=== PATIENT | male | born 1945 | race Caucasian/White ===

== ENCOUNTER 2016-11-03 08:14 | Emergency (ER) | payer MEDICARE, BC ==
[2016-11-03 09:10] LABS: BLOOD UREA NITROGEN 9 mg/dL (9-20); CALCIUM 9.3 mg/dL (8.4-10.2); CHLORIDE 102 mmol/L (98-107); EST GLOMERULAR FILTRATION RATE > 60 mL/min; GLUCOSE 202 mg/dL (70-100); SODIUM 140 mmol/L (137-145)
[2016-11-03 09:13] LABS: BASOPHILS 0.9 % (0.0-2.0); EOSINOPHILS 4.7 % (0.0-6.0); HEMATOCRIT 37.5 % (42.0-54.0); HEMOGLOBIN 12.5 g/dL (14.0-18.0); LYMPHOCYTES 32.1 % (20.0-40.0); MEAN CORPUS. HGB CONCENTRATION 33.3 g/dL (32.0-36.0); MEAN CORPUSCULAR HEMOGLOBIN 29.8 pg (29.0-35.0); MEAN PLATELET VOLUME 6.8 fL (7.4-10.4); MONOCYTES 7.2 % (2.0-10.0); NEUTROPHILS 55.1 % (54.0-75.0); PLATELET COUNT 456 X 10^3uL (130-440); RED CELL DISTRIBUTION WIDTH 12.8 % (11.5-14.5); WHITE BLOOD COUNT 12.5 X 10^3uL (3.9-10.7)
[2016-11-03 09:14] LABS: BASOPHIL# 0.1 X 10^3uL (0.0-0.1); EOSINOPHILS# 0.6 X 10^3uL (0.0-0.4); MONOCYTES# 0.9 X 10^3uL (0.2-1.0); NEUTROPHILS# 6.9 X 10^3uL (2.6-6.7)
[2016-11-03] MEDS ORDERED: cefTRIAXone SODIUM 1,000 MG/10 ML VIAL ONE (09:16)
[2016-11-03] MEDS ORDERED: NORMAL SALINE 100 ML IV ONE (09:16)
[2016-11-03 09:50] LABS: URINE MUCUS NONE SEEN (Up to 25%); URINE RBC NONE SEEN (0-5/hpf); URINE SQUAMOUS EPITHELIAL CELL NONE SEEN (<= 15/hpf); URINE WBC NONE SEEN (0-4/hpf)
--- NOTE | 2016-11-03 09:56 | CT REPORT ---
HISTORY: Chest pain. TECHNIQUE: Contiguous axial images were acquired from the thoracic inlet to the upper abdomen following the admi nistration of IV contrast. Coronal reformatted images were also performed. This examination was performed using automated exposure control, adjustment of mA or kV according to patient size, and/or use of iterative reconstruction technique. FINDINGS: Comparison: Comparison is made with chest radiograph of same date. Braided Rug Maker localizer: Braided Rug Maker localizer shows right upper lobe pulmonary opacity. Lungs show an irregular, spiculated noncalcified right upper lobe pulmonary mass, best demonstrated o n series 3 image 22. It measures 6.5 cm transverse x 7.3 cm AP x 6.0 cm craniocaudad. It shows centra l areas of decreased attenuation, consistent with necrosis. It also contains coarse irregular calcifi cations. The lesion extends to the pleura within the apex of the right hemithorax and also abuts the superior mediastinum, extending inferiorly to the right hilum. The lesion measures 1.5 cm from the ca nando. There is mild associated postobstructive atelectasis. Results were communicated to the referring care provider concerning these findings at the time of dic tation. There is no pleural effusion or pneumothorax. Small round partially calcified pulmonary nodules are a lso seen bilaterally, most consistent with granulomatous change. Mediastinum shows an enlarged right paratracheal lymph node, which measures 1.5 cm in diameter. Mild atherosclerotic disease involves the aortic arch and great vessels. There is no intimal flap or peric ardial effusion. Upper abdomen shows fatty liver replacement. Adrenal glands are anatomically normal. Remaining soft t issues are intact. Chest wall shows no axillary lymphadenopathy. There is no osseous erosive change involving ribs adjac ent to the right upper lobe pulmonary mass described above. Mild anterior osteophyte formation involv es the thoracic spine. IMPRESSION: 1. Spiculated noncalcified right apical pulmonary mass, with differential diagnosis including primar y neoplasm such as squamous cell carcinoma. Infectious etiology is also included in the differential diagnosis, though less likely. The lesion would be amenable to percutaneous biopsy under CT or ultras ound guidance. 2. Enlarged right paratracheal lymph node, with differential diagnosis including metastatic disease as well as inflammatory lymph node. Given the extent of the above findings, correlation with PET/CT i s recommended for further assessment. 3. Granulomatous change. 4. Fatty liver replacement. Final Electronic Signature: This report was electronically signed by Eliot Thomson MD on 11/03/2016 9 :54 AM. shumes /
[2016-11-03 10:08] LABS: URINE APPEARANCE CLEAR; URINE COLOR YELLOW; URINE LEUKOCYTE ESTERASE NEGATIVE (NEGATIVE); URINE NITRITE NEGATIVE (NEGATIVE); URINE PH 5.5 (5-7); URINE PROTEIN 100mg/dL (2+) (NEG - TRACE); URINE SPECIFIC GRAVITY 1.015 (0.001-1.035)
[2016-11-03 10:09] LABS: URINE BACTERIA NONE SEEN (<10/hpf); URINE BILIRUBIN NEGATIVE (NEGATIVE); URINE BLOOD NEGATIVE (NEGATIVE); URINE GLUCOSE NORMAL (NEGATIVE); URINE KETONE NEGATIVE (NEGATIVE); URINE UROBILINOGEN 0.2mg/dL (Normal) (NEG-1mg/dL)
--- NOTE | 2016-11-03 10:42 | ER NURSING DOCUMENTATION ---
Nurse's Notes [facility] Name:Darren Anderson Age:71 yrs Sex:Male :1945 Arrival Date:11/03/2016 Time:08:14 Bed4 Private MD:Physician, No Diagnosis:Lung Mass Presentation: 11/03 08:15 Presenting complaint: Patient states: pt has had some right sided chest discomfort, SOB st and a cough for two weeks. [place] and now all of those symptoms are worse. Transition of care: Other pt arrived from [facility] yesterday. 08:15 Method Of Arrival: Private Vehicle st 08:18 Acuity: MUNIR 2 st Triage Assessment: 08:15 General: Appears uncomfortable, Behavior is cooperative. Pain: Complains of pain in st anterior aspect of right upper chest and right breast Pain currently is 4 out of 10 on a pain scale. Pain began gradually, 2 weeks. Cardiovascular: Capillary refill < 3 seconds Heart tones present. Respiratory: Airway is patent Respiratory effort is even, labored, Respiratory pattern is regular, symmetrical, Breath sounds are diminished in right upper lobe, right middle lobe and right lower lobe Breath sounds with wheezes in left upper lobe and left lower lobe Reports shortness of breath at rest on exertion cough that is productive, pain with cough Onset: The symptoms/episode began/occurred gradually, the patient has moderate shortness of breath. GI: No deficits noted. Historical: - Allergies: Morphine; - Home Meds: 1. Acarbose Oral 2. cilostazol oral 3. Ranitidine Oral 4. Metformin Oral 5. Lisinopril Oral 6. Eliquis oral 7. Simvastatin Oral 8. Lantus Sub-Q - PMHx: DIABETES - NIDDM; - Tetanus: < 10 years. - Ebola Screening: : Patient denies exposure to infectious person. Patient denies travel to an Ebola-affected area in the 21 days before illness onset. . - Social history: Smoking status: Patient uses tobacco products, current every day smoker. Patient/guardian denies using alcohol, marijuana. Screenin:39 Infectious Disease Risk None. Abuse screen: Denies threats or abuse. Denies injuries st from another. pt feels safe at home. Nutritional screening: No deficits noted. Vital Signs: 08:15 BP 168 / 79; Pulse 88; Resp 32; Temp 97.8; Pulse Ox 93% on R/A; Pain 4/10; st 08:56 BP 136 / 68 (auto/); st 09:00 Pulse 81 MON; Resp 23; Pulse Ox 95% on 2 lpm NC; st 09:40 BP 156 / 68 (auto/); st 09:45 Pulse 80 MON; Resp 18; Pulse Ox 98% on 2 lpm NC; st 10:00 BP 140 / 69 (auto/); st 10:05 Pulse 88 MON; Resp 28; Pulse Ox 94% ; st 10:30 BP 138 / 72 (auto/); st 10:35 Pulse 89 MON; Resp 27; Pulse Ox 93% ; st ED Course: 08:15 Patient arrived in ED. ds 08:17 Antonia Jaquez RN is Primary Nurse. st 08:[address] 08:19 Patient moved to radiology. pm1 08:23 Ashu Mayorga MD is Attending Physician. jm 08:40 Valuables Remains with patient Patient has correct armband on for positive st identification. Placed in gown. Bed in low position. Pulse Ox - RN Monitoring Only NIBP On - RN Monitoring Only. 08:44 Physician, No is Private Physician. ds 08:55 Inserted peripheral IV: 20 gauge in left antecubital area and blood collected. Oxygen st Oxygen administration via nasal cannula @ 2L/min. 08:55 efficiency miner blasting on. Pulse ox on. NIBP on. st 09:[address] akua 09:33 Patient moved back from ID. akua 09:[address] 09:41 Urine collected. Voided sputum. st Administered Medications: 09:15 Drug: Rocephin 1 grams; Route: IVPB; Site: left antecubital; st 09:34 Follow up: IV Status: Completed infusion; IV Intake: 100ml st Intake: 09:34 IV: 100ml; Total: 100ml. st Outcome: 10:27 Discharge ordered by . jm 10:40 Discharged to home ambulatory. st 10:40 Condition: stable 10:40 Discharge instructions given to patient, Instructed on discharge instructions, follow up and referral plans. 10:41 [address] ED[address] st 07 10:03 Discharge F/U Call: Unable to reach: no answer st Signatures: Antonia Jaquez RN RN st Srot, Alexandrea, Reg Reg Ashu Dalton MD MD jm Abbott, Laura lea McBride, Philisha [facility]
--- NOTE | 2016-11-03 10:42 | ER PHYSICIAN DOCUMENTATION ---
Physician Documentation [facility] Name:Darren Anderson Age:71 yrs Sex:Male :1945 Arrival Date:11/03/2016 Time:08:14 Bed4 Private MD:Physician, No ED Ashu Ivan Disposition: 11/03/16 10:27 Discharged to Home/Self Care. Impression: Lung Mass. - Condition is Good. - Discharge Instructions: CANCER, New Diagnosis. - Prescriptions for Zithromax Z- Jayme 250 mg Oral Tablet - take 1 tablet by ORAL route as directed for 5 days Day 1 - take two (2) tablets one time. Day 2, 3, 4 , 5 take one (1) tablet once daily.; 6 tablet. - Medical Reconciliation form form. - Follow up: Private Physician; When: Tuesday, October, at 2:30pm; Reason: Continuance of care. - Problem is new. - Symptoms have improved. HPI: 11/03 08:57 This 71 yrs old Male presents to ER via Private Vehicle with complaints of jm Shortness Of Breath. 08:57 The patient has shortness of breath at rest, with light activity. Onset: The jm symptom(s)/episode began/occurred 2 week(s) ago, and became worse today. Duration: The symptoms are continuous, and are markedly worse than the original presentation. The patient's shortness of breath is aggravated by exertion, light activity. Associated signs and symptoms: Pertinent positives: productive cough, fever. Severity of symptoms: in the emergency department the symptoms are worse. The patient has not experienced similar symptoms in the past. The patient has not recently seen a physician. 71 yo M from [place] here w SOB and fatigue. Pt has been having cough w fevers for the past 2 weeks. Pt came to [facility] yesterday and things have gotten much worse, so he came in. Pt w mild R. upper chest tightness as well. . Historical: - Allergies: Morphine; - Home Meds: 1. Acarbose Oral 2. cilostazol oral 3. Ranitidine Oral 4. Metformin Oral 5. Lisinopril Oral 6. Eliquis oral 7. Simvastatin Oral 8. Lantus Sub-Q - PMHx: DIABETES - NIDDM; - Tetanus: < 10 years. - Ebola Screening: : Patient denies exposure to infectious person. Patient denies travel to an Ebola-affected area in the 21 days before illness onset. . - Social history: Smoking status: Patient uses tobacco products, current every day smoker. Patient/guardian denies using alcohol, marijuana. ROS: 09:00 Constitutional: Positive for chills, fatigue, fever, malaise. jm 09:00 ENT: Negative for rhinorrhea, sinus congestion, sinus pain, sore throat. 09:00 Cardiovascular: Positive for chest pain, with cough. 09:00 Respiratory: Positive for cough, dyspnea on exertion, shortness of breath. 09:00 Abdomen/GI: Negative for abdominal pain, nausea, vomiting, diarrhea. 09:00 MS/extremity: Negative for pain, swelling, tenderness. 09:00 Skin: Negative for diaphoresis, rash. 09:00 Neuro: Positive for dizziness, weakness, Negative for headache. 09:00 Psych: Negative for drug dependence, alcohol dependence. 09:00 Endocrine: Negative for polydipsia, polyphagia. 09:00 All other systems are negative. Exam: 09:01 Constitutional: The patient appears in no acute distress, alert, awake, obese. 09:01 Eyes: Periorbital structures: appear normal, Pupils: equal, round, and reactive to light and accomodation. 09:01 ENT: Nose: is normal, Mouth: is normal. 09:01 Neck: Thyroid: appears normal, Trachea: is midline with no obvious abnormalities. 09:01 Cardiovascular: Rate: normal, Rhythm: 09:01 Respiratory: Respirations: tachypnea, Breath sounds: decreased breath sounds, that are moderate, are heard in the right posterior upper lobe. 09:01 Abdomen/GI: Bowel sounds: normal, Palpation: soft, nontender. 09:01 Musculoskeletal/extremity: old scars on R leg (previous surgery on artery there). 09:01 Skin: Appearance: Color: pink, no rash present. 09:01 Neuro: Mentation: is normal, Memory: is normal. 09:01 Psych: Behavior/mood is pleasant, cooperative, Affect is calm. Vital Signs: 08:15 BP 168 / 79; Pulse 88; Resp 32; Temp 97.8; Pulse Ox 93% on R/A; Pain 4/10; st 08:56 BP 136 / 68 (auto/); st 09:00 Pulse 81 MON; Resp 23; Pulse Ox 95% on 2 lpm NC; st 09:40 BP 156 / 68 (auto/); st 09:45 Pulse 80 MON; Resp 18; Pulse Ox 98% on 2 lpm NC; st 10:00 BP 140 / 69 (auto/); st 10:05 Pulse 88 MON; Resp 28; Pulse Ox 94% ; st 10:30 BP 138 / 72 (auto/); st 10:35 Pulse 89 MON; Resp 27; Pulse Ox 93% ; st MDM: 08:23 Patient medically screened. jm 09:56 Differential diagnosis: pneumonia, cancer. Antibiotic administration: Rocephin and jm Zithromax given. Data reviewed: vital signs, nurses notes, lab test result(s), radiologic studies, and as a result, I will initiate a consult, from a Pt's PCP Dr. Dougherty. Test interpretation: by ED physician or midlevel provider: plain radiologic studies. Counseling: I had a detailed discussion with the patient and/or guardian regarding: the historical points, exam findings, and any diagnostic results supporting the discharge/admit diagnosis, lab results, radiology results, the need for outpatient follow up, with the patient's primary care provider, oncology for an urgent bronch. 10:26 ED course: Spoke w PCP, Dr. Dougherty. Pt will see her on 11/10/16 at 2:30pm for f/u f jm this mass and bronch scheduling. Transfer w more urgent bronch was offered by me, but pt would rather be at home. They are leaving after DC here. I will give [employer] for PNA coverage if this is a PNA. . 11/03 09:11 Order name: BASIC METABOLIC PANEL; Complete Time: 09:16 EDAR 11/03 09:15 Order name: CBC AUTO DIF, MDIF/RMOR IF IND; Complete Time: 09:16 EDAR 11/03 09:16 Order name: PROTIME/INR; Complete Time: 09:40 EDAR 11/03 10:09 Order name: UA W/ MICRO -CULTURE IF IND; Complete Time: 10:26 EDAR 11/03 10:54 Order name: SPUTUM CULTURE AND GRAM STAIN EDAR 11/03 10:56 Order name: SPUTUM GRAM STAIN [facility] 11/04 08:58 Order name: BLOOD CULTURE EDAR 11/04 08:58 Order name: BLOOD CULTURE EDAR 11/03 09:58 Order name: CAT SCAN; CHEST W/CON [id number]; Complete Time: 10:26 EDMS 11/03 11:39 Order name: CXR 2V [id number] EDAR 11/03 08:53 Order name: I & O; Complete Time: 08:54 st 11/03 08:53 Order name: Oxygen; Complete Time: 08:54 st 11/03 08:53 Order name: Place Patient On Monitor; Complete Time: 08:54 st 11/03 08:53 Order name: Pulse Ox Continuous; Complete Time: 08:54 st Dispensed Medications: 09:15 Drug: Rocephin 1 grams; Route: IVPB; Site: left antecubital; st 09:34 Follow up: IV Status: Completed infusion; IV Intake: 100ml st Signatures: Antonia Jaquez RN RN Ashu Uribe MD MD jm
--- NOTE | 2016-11-03 11:17 | RADIOLOGY REPORT ---
Two views of the chest, without prior films for comparison, demonstrate the heart and vessels to be unremarkable. Left lung field is clear. Somewhat ill-defined opacification is noted in the right suprahilar region. Appearance raises concern for a 7 cm mass with associated atelectasis/ infiltrates. Elevation of the right hemidiaphragm is noted. No other abnormality is identified. IMPRESSION: Nonspecific opacification in the right suprahilar region. Question possible mass. Further evaluation with CT scanning is recommended. MTDD
== END 2016-11-03 10:42 | disposition home or self-care (01) ==
LOC: ER 08:14
DX: R91.8 Other nonspecific abnormal finding of lung field (principal); R05 Cough; R06.02 Shortness of breath; R50.9 Fever, unspecified; R07.9 Chest pain, unspecified; R06.09 Other forms of dyspnea; R42 Dizziness and giddiness; R53.1 Weakness; R53.83 Other fatigue; R53.81 Other malaise; E11.9 Type 2 diabetes mellitus without complications; Z79.899 Other long term (current) drug therapy; Z79.4 Long term (current) use of insulin; F17.210 Nicotine dependence, cigarettes, uncomplicated
CPT/HCPCS: 71020; 71260; 80048; 81001; 85025; 85610; 87040; 87205; 96365; 99285; J0696